=== PATIENT | male | born 1980 | race Hispanic/Latino ===

== ENCOUNTER 2017-06-30 12:15 | Emergency (ER) | payer SELFPAY ==
[~2017-06-30] VITALS: Ht 182.9 cm; Wt 133.0 kg
[2017-06-30] MEDS ORDERED: MOTRIN600 MG PO (13:55)
[2017-06-30 14:23] VITALS: BP 147/89
== END 2017-06-30 14:23 | disposition home or self-care (01) ==
LOC: EME 12:15
DX: S93.402A Sprain of unspecified ligament of left ankle, initial encounter (principal); X50.9XXA Other and unspecified overexertion or strenuous movements or postures, initial encounter
CPT/HCPCS: 73610; 99281; 99284